=== PATIENT | female | born 1960 | race Caucasian/White ===

== ENCOUNTER 2021-11-10 19:35 | Inpatient (IN) | payer BC ==
[~2021-11-10] VITALS: Ht 172.7 cm; Wt 68.2 kg
[2021-11-10 20:11] LABS: BASOPHILS % (AUTO) 0.7 % (0-1); EOSINOPHILS % (AUTO) 0.8 % (0-6); HEMATOCRIT 40.2 % (35.0-45.0); HEMOGLOBIN 13.4 g/dl (12.0-16.0); LYMPHOCYTES # (AUTO) 0.2 X10'3 (1.1-4.8); LYMPHOCYTES % (AUTO) 5.5 % (21-51); MEAN CORPUSCULAR HEMOGLOBIN 31.1 PG (27.0-31.0); MEAN CORPUSCULAR HGB CONC 33.3 g/dL (33.0-36.5); MEAN CORPUSCULAR VOLUME 93.4 FL (78-98); MEAN PLATELET VOLUME 10.5 FL (7.4-10.4); MONOCYTES # (AUTO) 0.5 X10'3 (0-0.9); MONOCYTES % (AUTO) 12.2 % (2-12); NEUTROPHILS # (AUTO) 3.6 X10'3 (1.8-7.7); NEUTROPHILS % (AUTO) 80.8 % (42-75); PLATELET COUNT 106 X10'3 (140-440); RED BLOOD COUNT 4.31 X10'6 (4.20-5.60); RED CELL DISTRIBUTION WIDTH 14.3 % (11.5-14.5); WHITE BLOOD COUNT 4.5 X10'3 (4.5-11.0)
[2021-11-10 20:36] LABS: ALANINE AMINOTRANSFERASE 88 U/L (12-78); ALBUMIN 3.5 G/DL (3.4-5.0); ALKALINE PHOSPHATASE 170 IU/L (46-116); ANION GAP 9 (8-16); ASPARTATE AMINO TRANSFERASE 92 U/L (10-37); BILIRUBIN,TOTAL 0.2 MG/DL (0.1-1.0); BLOOD UREA NITROGEN 17 MG/DL (7-18); BUN/CREATININE RATIO 18.5 (6.6-38.0); CHLORIDE 104 MMOL/L (99-107); CREATININE 0.92 MG/DL (0.40-0.90); GLUCOSE 137 MG/DL (70-104); POTASSIUM 4.1 MMOL/L (3.5-5.1); SODIUM 137 MMOL/L (135-145); TOTAL CARBON DIOXIDE 24.4 MMOL/L (24-32); eGFR 62 ML/MIN
[2021-11-10 23:18] LABS: D-DIMER 2.09 MG/L FEU (0-0.50)
[2021-11-11] MEDS ORDERED: LORazepam 2 mg/ml vial IV ONE (03:15)
[2021-11-11] MEDS ORDERED: ipratropium/albuterol 3ml nebule NEB ONE (03:30)
[2021-11-11] MEDS ORDERED: mag hydrox/Alum hydrox/simeth 30ml oral suspension PO PRN (05:40)
[2021-11-11] MEDS ORDERED: acetaminophen 325mg tablet PO PRN (05:40)
[2021-11-11] MEDS ORDERED: PERFLUTREN PROTEIN-A MICROSPHR (Optison) 0.22 MG/ML 3ML VIAL IV ONE (05:40)
[2021-11-11] MEDS ORDERED: POTASSIUM BICARB 20meq eff tab 20 MEQ TABLET.EFF PO PRN ×2 (05:40)
[2021-11-11] MEDS ORDERED: magnesium 4gm in 100ml NS 100 ML IV PRN (05:40)
[2021-11-11] MEDS ORDERED: magnesium 2GM in 50ml NS 50 ML IV PRN (05:40)
[2021-11-11] MEDS ORDERED: magnesium hydroxide 30ml (MOM) UD suspension PO PRN (05:40)
[2021-11-11] MEDS ORDERED: potassium CL 10mEq/100ml bag 100 ML IV PRN (05:40)
[2021-11-11] MEDS ORDERED: ondansetron/PF 4mg/2ml inj IV PRN (05:40)
[2021-11-11] MEDS ORDERED: enoxaparin 80mg/0.8ml syringe SUBCUT SCH (06:00)
[2021-11-11 07:28] LABS: MAGNESIUM 1.2 MG/DL (1.5-2.4); POTASSIUM 3.8 MMOL/L (3.5-5.1)
[2021-11-11] MEDS: docusate sod 100mg capsule PO SCH ×2 (07:46→19:46)
[2021-11-11] MEDS: K and/or MAG REPLACEMENT MC SCH ×2 (07:47→20:00)
[2021-11-11] MEDS ORDERED: iohexol 350MG/ML 100ml bottle IV ONE (08:00)
[2021-11-11] MEDS ORDERED: sacubitril/valsartan 24mg-26mg tablet PO SCH (08:00)
[2021-11-11] MEDS ORDERED: carVEDilol 12.5mg tablet PO SCH (08:00)
[2021-11-11] MEDS ORDERED: methylPREDNISolone sod succ 125mg/2ml vial IV ONE (08:20)
--- NOTE | 2021-11-11 08:40 | NUR ---
called pharmacy at this time and spoke to lourdes in pharmacy asked if they can bring pt bp med and verify the rest of meds ,as per her they only have 1 pharmacist and she is busy rgt now.
--- NOTE | 2021-11-11 08:46 | NUR ---
paged dr murray at this time to clarify the need of bld culture prior to admin the abx ?
--- NOTE | 2021-11-11 09:04 | NUR ---
SPOKE TO DR ALBRECHT AND INFORMED ABOUT THE PT LOW BP ,DIAPHORISIS ,TACHYPNEIC AND ORDER FOR BLD CULTURES PRIOR TO ADMIN THE ABX PER MD GIVE 500 ML BOLUS IV FLUID AND REPEAT IF THE BP IS STILL LOW AND ORDER BLD CULTURES.
[2021-11-11] MEDS ORDERED: normal saline 1000ml 1,000 ML IV ONE ×2 (09:05→11:25)
[2021-11-11] MEDS: azithromycin 250mg tablet PO SCH (09:22)
[2021-11-11] MEDS: cefTRIAXone 1g/NS 100ml IVPB 100 ML IV SCH (09:23)
[2021-11-11 09:28] LABS: CLARITY,URINE CLOUDY (Clear); COLOR,URINE YELLOW (Yellow); GLUCOSE, URINE NEGATIVE (Neg); KETONES,URINE 15 mg/dl (Neg); LEUKOCYTE ESTERASE ,URINE NEGATIVE (Neg); NITRITES, URINE POSITIVE (Neg); OCCULT BLOOD,URINE TRACE-INTACT (Neg); PH,URINE 5.5 (4.8-8.0); PROTEIN,URINE NEGATIVE (Neg); UROBILINOGEN,URINE 0.2 E.U/dL (0.2-1.0)
[2021-11-11 09:46] LABS: UA COLLECTION TYPE VOIDED
[2021-11-11 09:48] LABS: BACTERIA,URINE 3+ /HPF (Neg); HYALINE CASTS 0-3 /LPF (NEGATIVE); RBC,URINE 0-2 /HPF (0-2); SQUAMOUS EPITHELIAL CELL,UR FEW /LPF (FEW); WBC,URINE 0-4 /HPF (0-4)
--- NOTE | 2021-11-11 09:48 | NUR ---
dr murray at bedside.
[2021-11-11 10:08] LABS: URINE AMPHETAMINE SCREEN POSITIVE (Neg); URINE BARBITUATE SCREEN NEGATIVE (Neg); URINE BENZODIAZEPINES SCREEN NEGATIVE (Neg); URINE CANNABINOID SCREEN NEGATIVE (Neg); URINE COCAINE SCREEN NEGATIVE (Neg); URINE METHADONE SCREEN NEGATIVE (Neg); URINE OPIATE SCREEN NEGATIVE (Neg); URINE PHENCYCLIDINE SCREEN NEGATIVE (Neg)
[2021-11-11] MEDS ORDERED: SACU1TAB7 PO (10:40)
[2021-11-11] MEDS ORDERED: SPIR25TA5 PO (10:40)
[2021-11-11] MEDS ORDERED: CARV-50 PO (10:40)
--- NOTE | 2021-11-11 10:45 | NUR ---
paged dr murray at this time for low bp again.
--- NOTE | 2021-11-11 11:00 | NUR ---
paged rt for neb tx.
[2021-11-11] MEDS: ipratropium/albuterol 3ml nebule NEB SCH ×4 (11:19→23:06)
--- NOTE | 2021-11-11 11:23 | NUR ---
spoke to dr murray earlier regarding low bp 88/44 mmHg ,tele order for 1 l of n.s bolus .
--- NOTE | 2021-11-11 12:27 | NUR ---
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
[2021-11-11] MEDS: methylPREDNISolone sod succ/PF 40mg inj. IV SCH ×2 (14:04→19:46)
--- NOTE | 2021-11-11 16:23 | NUR ---
Patient in room PCU 3012. I have received report from Rubina TALBOT and had the opportunity to ask questions and assume patient care.
[2021-11-11 16:30] VITALS: BP 91/50
[2021-11-11] MEDS: magnesium Cl slow-release 64mg tablet PO PRN (17:27)
--- NOTE | 2021-11-11 17:56 | NUR ---
patient resting at time of report.
[2021-11-11 18:00] VITALS: BP 93/37
[2021-11-11] MEDS: normal saline 1000ml 1,000 ML IV SCH (18:09)
[2021-11-11] MEDS ORDERED: pneumococcal 23-VAL P-sac vacc 25 mcg/0.5ml vial IMVAC ONE (18:15)
--- NOTE | 2021-11-11 18:39 | NUR ---
patient sat up eating at time of report. no c/o pain. Report given to trip TALBOT
[2021-11-11 22:00] VITALS: BP 95/49
[2021-11-12 02:00] VITALS: BP 93/42
[2021-11-12] MEDS: ipratropium/albuterol 3ml nebule NEB SCH ×6 (03:23→22:43)
[2021-11-12 06:00] VITALS: BP 97/45
--- NOTE | 2021-11-12 06:28 | NUR ---
Problems reprioritized. Patient report given, questions answered & plan of care reviewed with DAHIANA Hernandez.
[2021-11-12 06:32] LABS: BASOPHILS % (AUTO) 0.3 % (0-1); EOSINOPHILS % (AUTO) 0 % (0-6); HEMATOCRIT 36.6 % (35.0-45.0); HEMOGLOBIN 12.3 g/dl (12.0-16.0); LYMPHOCYTES # (AUTO) 0.5 X10'3 (1.1-4.8); LYMPHOCYTES % (AUTO) 4.8 % (21-51); MEAN CORPUSCULAR HEMOGLOBIN 31.7 PG (27.0-31.0); MEAN CORPUSCULAR HGB CONC 33.4 g/dL (33.0-36.5); MEAN CORPUSCULAR VOLUME 94.9 FL (78-98); MEAN PLATELET VOLUME 10.7 FL (7.4-10.4); MONOCYTES # (AUTO) 0.4 X10'3 (0-0.9); NEUTROPHILS % (AUTO) 90.9 % (42-75); PLATELET COUNT 110 X10'3 (140-440); RED BLOOD COUNT 3.86 X10'6 (4.20-5.60); RED CELL DISTRIBUTION WIDTH 14.6 % (11.5-14.5); WHITE BLOOD COUNT 9.9 X10'3 (4.5-11.0)
[2021-11-12 06:42] LABS: ALANINE AMINOTRANSFERASE 52 U/L (12-78); ALBUMIN 2.7 G/DL (3.4-5.0); ALBUMIN/GLOBULIN RATIO 0.8 (1.1-1.5); ALKALINE PHOSPHATASE 142 IU/L (46-116); ANION GAP 9 (8-16); ASPARTATE AMINO TRANSFERASE 36 U/L (10-37); BILIRUBIN,TOTAL 0.1 MG/DL (0.1-1.0); BLOOD UREA NITROGEN 19 MG/DL (7-18); BUN/CREATININE RATIO 22.6 (6.6-38.0); CALCIUM 9.1 MG/DL (8.5-10.1); CHLORIDE 108 MMOL/L (99-107); CREATININE 0.84 MG/DL (0.40-0.90); GLUCOSE 135 MG/DL (70-104); MAGNESIUM 1.3 MG/DL (1.5-2.4); PHOSPHORUS 2.4 MG/DL (2.3-4.5); POTASSIUM 4.1 MMOL/L (3.5-5.1); SODIUM 142 MMOL/L (135-145); TOTAL CARBON DIOXIDE 24.9 MMOL/L (24-32); TOTAL PROTEIN 5.9 G/DL (6.4-8.2); eGFR 68 ML/MIN
[2021-11-12] MEDS: normal saline 1000ml 1,000 ML IV SCH ×2 (07:25→11:34)
[2021-11-12 07:57] LABS: LARGE PLATELETS FEW; PLATELET ESTIMATE DECREASED
[2021-11-12] MEDS ORDERED: enoxaparin 80mg/0.8ml syringe SUBCUT SCH (08:00)
[2021-11-12] MEDS: docusate sod 100mg capsule PO SCH ×2 (08:00→20:00)
[2021-11-12] MEDS: K and/or MAG REPLACEMENT MC SCH ×2 (08:00→20:00)
[2021-11-12] MEDS: cefTRIAXone 1g/NS 100ml IVPB 100 ML IV SCH (09:34)
[2021-11-12] MEDS: azithromycin 250mg tablet PO SCH (09:34)
[2021-11-12] MEDS: magnesium Cl slow-release 64mg tablet PO PRN ×2 (09:34→20:15)
[2021-11-12] MEDS ORDERED: LORazepam 1 MG tablet PO PRN (10:10)
[2021-11-12] MEDS ORDERED: haloperidol 5mg tablet PO PRN (10:10)
[2021-11-12] MEDS ORDERED: LORazepam 2 mg/ml vial IV PRN (10:10)
[2021-11-12] MEDS ORDERED: haloperidol lactate 5mg/ml inj IM PRN (10:10)
[2021-11-12 11:00] VITALS: BP 94/60
[2021-11-12] MEDS: multivitamins, therapeutics tablet PO SCH (11:33)
[2021-11-12] MEDS: folic acid 1mg tablet PO SCH (11:33)
[2021-11-12] MEDS: thiamine 100mg tablet PO SCH (11:33)
[2021-11-12] MEDS: enoxaparin 40mg/0.4ml syringe SUBCUT SCH ×2 (11:34→20:15)
--- NOTE | 2021-11-12 12:05 | NUR ---
Solumedrol which was scheduled for 0800 was not administered. It is too late to give now. Will wait for 1400 dose.
[2021-11-12] MEDS: methylPREDNISolone sod succ/PF 40mg inj. IV SCH ×3 (13:57→20:14)
[2021-11-12 15:00] VITALS: BP 103/81
--- NOTE | 2021-11-12 16:35 | NUR ---
Hourly roundings have been completed. Call light and personal belongings within reach. Will continue to monitor.
[2021-11-12 20:00] VITALS: BP 133/70
[2021-11-13 02:00] VITALS: BP 122/72
[2021-11-13] MEDS: methylPREDNISolone sod succ/PF 40mg inj. IV SCH ×3 (02:07→19:55)
[2021-11-13] MEDS: ipratropium/albuterol 3ml nebule NEB SCH ×6 (03:22→23:14)
[2021-11-13 06:00] VITALS: BP 135/69
[2021-11-13 06:35] LABS: BASOPHILS % (AUTO) 0.1 % (0-1); EOSINOPHILS % (AUTO) 0 % (0-6); HEMATOCRIT 36.9 % (35.0-45.0); HEMOGLOBIN 12.3 g/dl (12.0-16.0); LYMPHOCYTES # (AUTO) 0.5 X10'3 (1.1-4.8); LYMPHOCYTES % (AUTO) 5.5 % (21-51); MEAN CORPUSCULAR HGB CONC 33.2 g/dL (33.0-36.5); MEAN CORPUSCULAR VOLUME 93.3 FL (78-98); MEAN PLATELET VOLUME 10.9 FL (7.4-10.4); MONOCYTES # (AUTO) 0.2 X10'3 (0-0.9); MONOCYTES % (AUTO) 2.3 % (2-12); NEUTROPHILS # (AUTO) 8.2 X10'3 (1.8-7.7); NEUTROPHILS % (AUTO) 92.1 % (42-75); PLATELET COUNT 125 X10'3 (140-440); RED BLOOD COUNT 3.96 X10'6 (4.20-5.60); RED CELL DISTRIBUTION WIDTH 14.7 % (11.5-14.5); WHITE BLOOD COUNT 8.9 X10'3 (4.5-11.0)
[2021-11-13 06:50] LABS: ALANINE AMINOTRANSFERASE 69 U/L (12-78); ALBUMIN 2.9 G/DL (3.4-5.0); ALBUMIN/GLOBULIN RATIO 0.9 (1.1-1.5); ALKALINE PHOSPHATASE 128 IU/L (46-116); ANION GAP 9 (8-16); ASPARTATE AMINO TRANSFERASE 69 U/L (10-37); BILIRUBIN,TOTAL 0.2 MG/DL (0.1-1.0); BLOOD UREA NITROGEN 15 MG/DL (7-18); BUN/CREATININE RATIO 19.7 (6.6-38.0); CALCIUM 9.4 MG/DL (8.5-10.1); CHLORIDE 109 MMOL/L (99-107); CREATININE 0.76 MG/DL (0.40-0.90); GLUCOSE 167 MG/DL (70-104); MAGNESIUM 1.4 MG/DL (1.5-2.4); PHOSPHORUS 2.3 MG/DL (2.3-4.5); POTASSIUM 4.3 MMOL/L (3.5-5.1); SODIUM 143 MMOL/L (135-145); TOTAL CARBON DIOXIDE 24.6 MMOL/L (24-32); TOTAL PROTEIN 6.1 G/DL (6.4-8.2); eGFR 77 ML/MIN
[2021-11-13] MEDS: thiamine 100mg tablet PO SCH (07:54)
[2021-11-13] MEDS: magnesium Cl slow-release 64mg tablet PO PRN ×2 (07:54→19:56)
[2021-11-13] MEDS: multivitamins, therapeutics tablet PO SCH (07:54)
[2021-11-13] MEDS: folic acid 1mg tablet PO SCH (07:54)
[2021-11-13] MEDS: azithromycin 250mg tablet PO SCH (07:55)
[2021-11-13] MEDS: carVEDilol 12.5mg tablet PO SCH ×2 (07:55→19:56)
[2021-11-13] MEDS: sacubitril/valsartan 49mg-51mg tablet PO SCH ×2 (07:56→19:56)
[2021-11-13] MEDS: spironolactone 25 MG tablet PO SCH (07:56)
[2021-11-13] MEDS: cefTRIAXone 1g/NS 100ml IVPB 100 ML IV SCH (07:56)
[2021-11-13] MEDS: K and/or MAG REPLACEMENT MC SCH ×2 (07:56→18:58)
[2021-11-13] MEDS: docusate sod 100mg capsule PO SCH ×2 (07:57→19:55)
[2021-11-13 11:00] VITALS: BP 130/73
--- NOTE | 2021-11-13 14:51 | NUR ---
pt refused 1400 blood sugar check. Education provided, pt verbalized understanding
[2021-11-13 15:00] VITALS: BP 133/65
[2021-11-13 18:00] VITALS: BP 109/45
[2021-11-13] MEDS: enoxaparin 40mg/0.4ml syringe SUBCUT SCH (19:56)
--- NOTE | 2021-11-13 21:39 | NUR ---
Patient refused blood glucose check at 2000 Addendum: 11/13/21 at 2140 by Nelli Don RN Amended: Links added.
[2021-11-13 22:00] VITALS: BP 121/61
[2021-11-13] MEDS: normal saline 1000ml 1,000 ML IV SCH (22:08)
[2021-11-14 02:00] VITALS: BP 120/56
[2021-11-14] MEDS: ipratropium/albuterol 3ml nebule NEB SCH ×3 (02:48→11:22)
[2021-11-14 06:00] VITALS: BP 135/64
[2021-11-14 07:01] LABS: BASOPHILS % (AUTO) 0.1 % (0-1); EOSINOPHILS % (AUTO) 0 % (0-6); HEMATOCRIT 38.6 % (35.0-45.0); HEMOGLOBIN 13.1 g/dl (12.0-16.0); LYMPHOCYTES # (AUTO) 0.8 X10'3 (1.1-4.8); LYMPHOCYTES % (AUTO) 8.5 % (21-51); MEAN CORPUSCULAR HEMOGLOBIN 31.5 PG (27.0-31.0); MEAN CORPUSCULAR VOLUME 92.8 FL (78-98); MEAN PLATELET VOLUME 10.6 FL (7.4-10.4); MONOCYTES # (AUTO) 0.4 X10'3 (0-0.9); MONOCYTES % (AUTO) 4.9 % (2-12); NEUTROPHILS # (AUTO) 7.9 X10'3 (1.8-7.7); NEUTROPHILS % (AUTO) 86.5 % (42-75); PLATELET COUNT 130 X10'3 (140-440); RED BLOOD COUNT 4.16 X10'6 (4.20-5.60); RED CELL DISTRIBUTION WIDTH 14.6 % (11.5-14.5); WHITE BLOOD COUNT 9.1 X10'3 (4.5-11.0)
[2021-11-14 07:20] LABS: ALANINE AMINOTRANSFERASE 204 U/L (12-78); ALBUMIN 2.7 G/DL (3.4-5.0); ALBUMIN/GLOBULIN RATIO 0.9 (1.1-1.5); ALKALINE PHOSPHATASE 120 IU/L (46-116); ANION GAP 3 (8-16); ASPARTATE AMINO TRANSFERASE 187 U/L (10-37); BILIRUBIN,TOTAL 0.2 MG/DL (0.1-1.0); BLOOD UREA NITROGEN 17 MG/DL (7-18); BUN/CREATININE RATIO 20.5 (6.6-38.0); CALCIUM 9.2 MG/DL (8.5-10.1); CHLORIDE 108 MMOL/L (99-107); CREATININE 0.83 MG/DL (0.40-0.90); GLUCOSE 141 MG/DL (70-104); MAGNESIUM 1.4 MG/DL (1.5-2.4); PHOSPHORUS 2.6 MG/DL (2.3-4.5); POTASSIUM 4.1 MMOL/L (3.5-5.1); SODIUM 138 MMOL/L (135-145); TOTAL CARBON DIOXIDE 27.2 MMOL/L (24-32); TOTAL PROTEIN 5.8 G/DL (6.4-8.2); eGFR 69 ML/MIN
[2021-11-14] MEDS: docusate sod 100mg capsule PO SCH (08:00)
[2021-11-14] MEDS: sacubitril/valsartan 49mg-51mg tablet PO SCH (08:00)
[2021-11-14] MEDS: K and/or MAG REPLACEMENT MC SCH (08:00)
[2021-11-14] MEDS: folic acid 1mg tablet PO SCH (08:55)
[2021-11-14] MEDS: spironolactone 25 MG tablet PO SCH (08:55)
[2021-11-14] MEDS: multivitamins, therapeutics tablet PO SCH (08:55)
[2021-11-14] MEDS: thiamine 100mg tablet PO SCH (08:55)
[2021-11-14] MEDS: carVEDilol 12.5mg tablet PO SCH (08:56)
[2021-11-14] MEDS: methylPREDNISolone sod succ/PF 40mg inj. IV SCH (08:56)
[2021-11-14] MEDS: cefTRIAXone 1g/NS 100ml IVPB 100 ML IV SCH (08:56)
[2021-11-14] MEDS: azithromycin 250mg tablet PO SCH (08:56)
--- NOTE | 2021-11-14 10:01 | NUR ---
O2 Sat at rest on room air:__87_% If below 89%: Recovery O2 Sat at rest on _1__LPM:__90_%:___% via____n/c (mask/nasal cannula, etc..) No further documentation is necessary.
[2021-11-14] MEDS ORDERED: ALBU8.5H17 INH (10:59)
[2021-11-14] MEDS ORDERED: FOLI1TAB27 PO (10:59)
[2021-11-14] MEDS ORDERED: MULT-25 PO (10:59)
[2021-11-14] MEDS ORDERED: CEFD300C3 PO (10:59)
[2021-11-14] MEDS ORDERED: PRED10TA23 PO (10:59)
[2021-11-14] MEDS ORDERED: THIA50TA10 PO (10:59)
[2021-11-14] MEDS ORDERED: BUDE10.22 INH (10:59)
[2021-11-14 11:00] VITALS: BP 146/72
--- NOTE | 2021-11-14 12:16 | NUR ---
Discharge instructions discussed with patient. All questions answered. Pt states she understands all instructions and will make necessary follow up appointments with her doctors. Provided smoking cessation hand outs and also home oxygen use hand outs. Discussed all new medications with patient. Pt will leave with home O2 tank via wheelchair with spouse.
== END 2021-11-14 12:41 | disposition home or self-care (01) | DRG 871 ==
LOC: ER 19:38 → ED HOLD 11-11 05:39 → PCU 3S 11-11 16:01
PROVIDERS: ADMIT Internal Medicine; ATTEND Family Medicine
PROC: B32T1ZZ Computerized Tomography (CT Scan) of Left Pulmonary Artery using Low Osmolar Contrast (ICD-10-PCS; principal; 2021-11-11)
PROC: B3201ZZ Computerized Tomography (CT Scan) of Thoracic Aorta using Low Osmolar Contrast (ICD-10-PCS; 2021-11-11)
PROC: B32S1ZZ Computerized Tomography (CT Scan) of Right Pulmonary Artery using Low Osmolar Contrast (ICD-10-PCS; 2021-11-11)
DX: A41.9 Sepsis, unspecified organism (principal); J18.9 Pneumonia, unspecified organism; N39.0 Urinary tract infection, site not specified; J44.1 Chronic obstructive pulmonary disease with (acute) exacerbation; I42.9 Cardiomyopathy, unspecified; J44.0 Chronic obstructive pulmonary disease with (acute) lower respiratory infection; I50.9 Heart failure, unspecified; F10.20 Alcohol dependence, uncomplicated; Z20.822 Contact with and (suspected) exposure to COVID-19; J20.9 Acute bronchitis, unspecified; F15.10 Other stimulant abuse, uncomplicated; F17.200 Nicotine dependence, unspecified, uncomplicated; M41.9 Scoliosis, unspecified; R09.02 Hypoxemia; Z95.810 Presence of automatic (implantable) cardiac defibrillator; Z71.41 Alcohol abuse counseling and surveillance of alcoholic; Z71.51 Drug abuse counseling and surveillance of drug abuser; Z71.6 Tobacco abuse counseling
CPT/HCPCS: 36415; 71045; 71046; 71275; 80053; 80305; 81001; 82948; 83605; 83735; 83880; 84100; 84132; 84145; 84484; 85008; 85025; 85379; 87040; 87077; 87081; 87088; 87186; 87635; 93005; 93306; 94640; 94664; 94668; 94760; 99285; A4615; C9803; G0378; J0696; J1650; J2060; J2920; J2930; J7030; Q9967

== ENCOUNTER 2021-11-19 06:18 | Inpatient (IN) | payer BC ==
[~2021-11-19] VITALS: Ht 172.7 cm; Wt 65.4 kg
[~2021-11-19 06:18] MED LIST: ALBU8.5H17 INH; BUDE10.22 INH; CARV-50 PO; CEFD300C3 PO; FOLI1TAB27 PO; MULT-25 PO; PRED10TA23 PO; SACU1TAB7 PO; SPIR25TA5 PO; THIA50TA10 PO
[2021-11-19] MEDS ORDERED: ondansetron/PF 4mg/2ml inj IV ONE (07:00)
[2021-11-19] MEDS ORDERED: albuterol 2.5 MG/3 ML nebule NEB ONE (07:00)
[2021-11-19 07:37] LABS: BASOPHILS % (AUTO) 0.1 % (0-1); EOSINOPHILS # (AUTO) 0.2 X10'3 (0-0.9); EOSINOPHILS % (AUTO) 0.7 % (0-6); HEMATOCRIT 43.7 % (35.0-45.0); HEMOGLOBIN 14.5 g/dl (12.0-16.0); LYMPHOCYTES % (AUTO) 7.1 % (21-51); MEAN CORPUSCULAR HEMOGLOBIN 30.9 PG (27.0-31.0); MEAN CORPUSCULAR HGB CONC 33.3 g/dL (33.0-36.5); MEAN CORPUSCULAR VOLUME 92.9 FL (78-98); MEAN PLATELET VOLUME 9.7 FL (7.4-10.4); MONOCYTES # (AUTO) 3.1 X10'3 (0-0.9); MONOCYTES % (AUTO) 10.7 % (2-12); NEUTROPHILS # (AUTO) 23.3 X10'3 (1.8-7.7); NEUTROPHILS % (AUTO) 81.4 % (42-75); PLATELET COUNT 232 X10'3 (140-440); RED CELL DISTRIBUTION WIDTH 14.3 % (11.5-14.5)
[2021-11-19 07:47] LABS: WHITE BLOOD COUNT 28.7 X10'3 (4.5-11.0)
[2021-11-19 08:00] LABS: ALANINE AMINOTRANSFERASE 132 U/L (12-78); ALBUMIN/GLOBULIN RATIO 0.8 (1.1-1.5); ALKALINE PHOSPHATASE 130 IU/L (46-116); ANION GAP 11 (8-16); ASPARTATE AMINO TRANSFERASE 72 U/L (10-37); BILIRUBIN,TOTAL 0.6 MG/DL (0.1-1.0); BLOOD UREA NITROGEN 22 MG/DL (7-18); BUN/CREATININE RATIO 19.8 (6.6-38.0); CALCIUM 9.6 MG/DL (8.5-10.1); CHLORIDE 98 MMOL/L (99-107); CREATININE 1.11 MG/DL (0.40-0.90); GLUCOSE 174 MG/DL (70-104); POTASSIUM 4.1 MMOL/L (3.5-5.1); SODIUM 139 MMOL/L (135-145); TOTAL CARBON DIOXIDE 30.2 MMOL/L (24-32); TOTAL PROTEIN 6.6 G/DL (6.4-8.2); eGFR 50 ML/MIN
[2021-11-19 08:13] LABS: TOTAL CELLS COUNTED 100
[2021-11-19 08:14] LABS: PLATELET ESTIMATE NORMAL
[2021-11-19] MEDS ORDERED: normal saline 1000ml 1,000 ML IV ONE (09:50)
[2021-11-19] MEDS ORDERED: ringers solution, lacted 1,000 ML IV ONE (10:50)
[2021-11-19] MEDS ORDERED: CefTRIAXone 2gm/NS 100ml IVPB 100 ML IV ONE (10:50)
[2021-11-19] MEDS ORDERED: ondansetron/PF 4mg/2ml inj IV PRN (13:50)
[2021-11-19] MEDS ORDERED: potassium CL 10mEq/100ml bag 100 ML IV PRN (13:50)
[2021-11-19] MEDS ORDERED: POTASSIUM BICARB 20meq eff tab 20 MEQ TABLET.EFF PO PRN ×2 (13:50)
[2021-11-19] MEDS ORDERED: magnesium 2GM in 50ml NS 50 ML IV PRN (13:50)
[2021-11-19] MEDS ORDERED: magnesium Cl slow-release 64mg tablet PO PRN (13:50)
[2021-11-19] MEDS ORDERED: acetaminophen 325mg tablet PO PRN (13:50)
[2021-11-19] MEDS ORDERED: magnesium 4gm in 100ml NS 100 ML IV PRN (13:50)
[2021-11-19] MEDS ORDERED: cefTRIAXone 1g/NS 100ml IVPB 100 ML IV SCH (14:05)
[2021-11-19] MEDS ORDERED: azithromycin/NS 500mg/250ml 250 ML IV ONE (14:05)
[2021-11-19] MEDS: ipratropium/albuterol 3ml nebule NEB SCH ×3 (14:50→23:20)
[2021-11-19] MEDS: normal saline 1000ml 1,000 ML IV SCH (15:11)
[2021-11-19 15:30] LABS: MAGNESIUM 1.4 MG/DL (1.5-2.4); POTASSIUM 3.9 MMOL/L (3.5-5.1)
[2021-11-19] MEDS: docusate sod 100mg capsule PO SCH (18:58)
[2021-11-19] MEDS: K and/or MAG REPLACEMENT MC SCH (18:58)
[2021-11-19] MEDS: methylPREDNISolone sod succ 125mg/2ml vial IV SCH (19:07)
[2021-11-19 21:15] VITALS: BP 110/59
[2021-11-20] MEDS: normal saline 1000ml 1,000 ML IV SCH ×3 (00:06→21:56)
[2021-11-20 02:00] VITALS: BP 110/64
[2021-11-20] MEDS: ipratropium/albuterol 3ml nebule NEB SCH ×6 (03:05→23:14)
[2021-11-20] MEDS ORDERED: ALB0.5UD IH (05:36)
[2021-11-20 06:00] VITALS: BP 105/61
--- NOTE | 2021-11-20 06:00 | NUR ---
RECEIVED REPORT FROM HELEN
[2021-11-20 06:50] LABS: BASOPHILS % (AUTO) 0.1 % (0-1); EOSINOPHILS % (AUTO) 0.1 % (0-6); HEMOGLOBIN 11.5 g/dl (12.0-16.0); LYMPHOCYTES # (AUTO) 0.5 X10'3 (1.1-4.8); LYMPHOCYTES % (AUTO) 3.7 % (21-51); MEAN CORPUSCULAR HEMOGLOBIN 31.3 PG (27.0-31.0); MEAN CORPUSCULAR HGB CONC 32.8 g/dL (33.0-36.5); MEAN CORPUSCULAR VOLUME 95.3 FL (78-98); MONOCYTES # (AUTO) 0.5 X10'3 (0-0.9); MONOCYTES % (AUTO) 4.1 % (2-12); NEUTROPHILS # (AUTO) 12.5 X10'3 (1.8-7.7); PLATELET COUNT 175 X10'3 (140-440); RED BLOOD COUNT 3.68 X10'6 (4.20-5.60); RED CELL DISTRIBUTION WIDTH 14.4 % (11.5-14.5); WHITE BLOOD COUNT 13.6 X10'3 (4.5-11.0)
[2021-11-20 07:10] LABS: ALBUMIN 2.1 G/DL (3.4-5.0); ANION GAP 9 (8-16); BLOOD UREA NITROGEN 18 MG/DL (7-18); BUN/CREATININE RATIO 24.7 (6.6-38.0); CALCIUM 8.6 MG/DL (8.5-10.1); CHLORIDE 105 MMOL/L (99-107); CREATININE 0.73 MG/DL (0.40-0.90); GLUCOSE 152 MG/DL (70-104); MAGNESIUM 1.5 MG/DL (1.5-2.4); POTASSIUM 4.7 MMOL/L (3.5-5.1); SODIUM 141 MMOL/L (135-145); TOTAL CARBON DIOXIDE 27.5 MMOL/L (24-32); eGFR 81 ML/MIN
[2021-11-20] MEDS: K and/or MAG REPLACEMENT MC SCH ×2 (08:00→20:00)
[2021-11-20] MEDS: docusate sod 100mg capsule PO SCH ×2 (08:00→20:00)
[2021-11-20] MEDS: folic acid 1mg tablet PO SCH (08:55)
[2021-11-20] MEDS: thiamine 100mg tablet PO SCH (08:56)
[2021-11-20] MEDS: spironolactone 25 MG tablet PO SCH (08:56)
[2021-11-20] MEDS: cefTRIAXone 1g/NS 100ml IVPB 100 ML IV SCH (09:11)
[2021-11-20] MEDS: sacubitril/valsartan 49mg-51mg tablet PO SCH ×2 (10:46→21:57)
[2021-11-20] MEDS: carVEDilol 12.5mg tablet PO SCH ×2 (10:48→21:57)
[2021-11-20] MEDS: azithromycin 250mg tablet PO SCH (10:49)
[2021-11-20] MEDS: methylPREDNISolone sod succ 125mg/2ml vial IV SCH ×2 (10:50→21:56)
[2021-11-20 11:00] VITALS: BP 103/54
[2021-11-20] MEDS ORDERED: albuterol 2.5 MG/3 ML nebule NEB SCH (14:00)
[2021-11-20 15:00] VITALS: BP 97/41
[2021-11-20] MEDS ORDERED: albuterol 2.5 MG/3 ML nebule NEB PRN (15:55)
[2021-11-20 18:00] VITALS: BP 116/50
--- NOTE | 2021-11-20 18:35 | NUR ---
REPORT GIVEN TO HELEN
[2021-11-20] MEDS: budesonide 0.5mg/2ml UD nebule IH SCH (18:50)
[2021-11-20] MEDS ORDERED: enoxaparin 40mg/0.4ml syringe SUBCUT SCH (20:00)
[2021-11-20] MEDS ORDERED: non-formulary drug (Budesonide/Formoterol Fumarate (Symbicort 80-4.5 Mcg Inhaler) 2 PUFFS) INH SCH (20:00)
[2021-11-20] MEDS ORDERED: cefpodoxime proxetil 100mg tablet PO SCH (20:00)
--- NOTE | 2021-11-20 20:45 | NUR ---
Paged Dr Sands: "PAGER ID: [phone] MESSAGE: For patient in room 3012A JORGE LUIS Barnes. Would like something for acid reflux.Takes Omeprazole at home but has been noncompliant with it. Call back [phone]. DAHIANA Israel. Thanks"
[2021-11-20 20:56] LABS: NEUTROPHILS % (MANUAL) 67 % (42-75)
[2021-11-20 20:57] LABS: BANDS% (MANUAL) 12 % (0-10); LYMPHOCYTES % (MANUAL) 8 % (21-51)
[2021-11-20 20:58] LABS: BASOPHILS % (MANUAL) 0 % (0-1); EOSINOPHILS % (MANUAL) 2 % (0-6); MONOCYTES % (MANUAL) 9 % (2-12)
[2021-11-20 20:59] LABS: NUCLEATED RED BLOOD CELLS 0 /100WBC (0-0); REACTIVE LYMPHOCYTES % 1 % (0-0)
[2021-11-20 21:00] LABS: SMUDGE CELLS 1+
[2021-11-20 21:01] LABS: METAMYLEOCYTES% (MANUAL) 1 % (0-0)
[2021-11-20 22:00] VITALS: BP 126/70
[2021-11-21 02:00] VITALS: BP 109/54
[2021-11-21] MEDS: ipratropium/albuterol 3ml nebule NEB SCH ×4 (02:59→14:52)
[2021-11-21 06:00] VITALS: BP 107/53
--- NOTE | 2021-11-21 06:10 | NUR ---
Patient in room PCU 3012. I have received report from DAHIANA Israel and had the opportunity to ask questions and assume patient care.
--- NOTE | 2021-11-21 06:26 | NUR ---
Change of shift report given to RN Taylor. Issues reprioritized. patient stable. No Acute complaints.
[2021-11-21] MEDS: normal saline 1000ml 1,000 ML IV SCH ×2 (07:06→10:35)
[2021-11-21] MEDS ORDERED: mag hydrox/Alum hydrox/simeth 30ml oral suspension PO PRN (07:20)
[2021-11-21] MEDS: budesonide 0.5mg/2ml UD nebule IH SCH (07:47)
[2021-11-21] MEDS ORDERED: multivitamins, therapeutics tablet PO SCH (08:00)
[2021-11-21 08:11] LABS: BASOPHILS # (AUTO) 0.2 X10'3 (0-0.2); BASOPHILS % (AUTO) 1.1 % (0-1); EOSINOPHILS % (AUTO) 0 % (0-6); HEMATOCRIT 33.4 % (35.0-45.0); HEMOGLOBIN 11.1 g/dl (12.0-16.0); LYMPHOCYTES # (AUTO) 0.6 X10'3 (1.1-4.8); LYMPHOCYTES % (AUTO) 3.9 % (21-51); MEAN CORPUSCULAR HEMOGLOBIN 31.1 PG (27.0-31.0); MEAN CORPUSCULAR HGB CONC 33.2 g/dL (33.0-36.5); MEAN CORPUSCULAR VOLUME 93.5 FL (78-98); MEAN PLATELET VOLUME 10.3 FL (7.4-10.4); MONOCYTES # (AUTO) 0.6 X10'3 (0-0.9); MONOCYTES % (AUTO) 3.8 % (2-12); NEUTROPHILS # (AUTO) 13.4 X10'3 (1.8-7.7); NEUTROPHILS % (AUTO) 91.2 % (42-75); PLATELET COUNT 197 X10'3 (140-440); RED BLOOD COUNT 3.57 X10'6 (4.20-5.60); RED CELL DISTRIBUTION WIDTH 14.6 % (11.5-14.5); WHITE BLOOD COUNT 14.7 X10'3 (4.5-11.0)
[2021-11-21 08:38] LABS: ALBUMIN 2.2 G/DL (3.4-5.0); ANION GAP 10 (8-16); BLOOD UREA NITROGEN 17 MG/DL (7-18); BUN/CREATININE RATIO 23.6 (6.6-38.0); CALCIUM 8.6 MG/DL (8.5-10.1); CHLORIDE 108 MMOL/L (99-107); CREATININE 0.72 MG/DL (0.40-0.90); GLUCOSE 168 MG/DL (70-104); MAGNESIUM 1.4 MG/DL (1.5-2.4); POTASSIUM 4.4 MMOL/L (3.5-5.1); SODIUM 143 MMOL/L (135-145); TOTAL CARBON DIOXIDE 25.5 MMOL/L (24-32); eGFR 82 ML/MIN
[2021-11-21] MEDS ORDERED: PRED20TA PO (08:55)
[2021-11-21] MEDS ORDERED: AZI25OT PO (08:55)
[2021-11-21 10:00] VITALS: BP 119/50
[2021-11-21] MEDS: K and/or MAG REPLACEMENT MC SCH (10:22)
[2021-11-21] MEDS: folic acid 1mg tablet PO SCH (10:28)
[2021-11-21] MEDS: azithromycin 250mg tablet PO SCH (10:28)
[2021-11-21] MEDS: cefTRIAXone 1g/NS 100ml IVPB 100 ML IV SCH (10:28)
[2021-11-21] MEDS: methylPREDNISolone sod succ 125mg/2ml vial IV SCH (10:28)
[2021-11-21 10:29] VITALS: BP_SYST 107
[2021-11-21] MEDS: carVEDilol 12.5mg tablet PO SCH (10:29)
[2021-11-21] MEDS: spironolactone 25 MG tablet PO SCH (10:29)
[2021-11-21] MEDS: thiamine 100mg tablet PO SCH (10:29)
[2021-11-21] MEDS: sacubitril/valsartan 49mg-51mg tablet PO SCH (10:29)
[2021-11-21] MEDS: docusate sod 100mg capsule PO SCH (10:30)
--- NOTE | 2021-11-21 14:55 | NUR ---
DC inst provided to pt. IV DC'd, tip intact. All belongings sent w/pt. WC to vehicle.
== END 2021-11-21 15:08 | disposition home or self-care (01) | DRG 871 ==
LOC: ER 06:19 → ED HOLD 14:00 → PCU 3S 20:58
PROVIDERS: ADMIT Internal Medicine; ATTEND Internal Medicine
DX: A41.9 Sepsis, unspecified organism (principal); J18.9 Pneumonia, unspecified organism; J44.1 Chronic obstructive pulmonary disease with (acute) exacerbation; I50.32 Chronic diastolic (congestive) heart failure; J96.10 Chronic respiratory failure, unspecified whether with hypoxia or hypercapnia; J44.0 Chronic obstructive pulmonary disease with (acute) lower respiratory infection; F17.210 Nicotine dependence, cigarettes, uncomplicated; G89.29 Other chronic pain; M54.9 Dorsalgia, unspecified; I95.9 Hypotension, unspecified; R19.7 Diarrhea, unspecified; K80.20 Calculus of gallbladder without cholecystitis without obstruction; N20.0 Calculus of kidney; Z79.51 Long term (current) use of inhaled steroids; Z79.899 Other long term (current) drug therapy
CPT/HCPCS: 36415; 71045; 74176; 80048; 80053; 83605; 83735; 84132; 84145; 85007; 85025; 87040; 87081; 94640; 94667; 94668; 94760; 96365; 96375; 99285; A4615; A4620; G0378; J0456; J0696; J1650; J2405; J2930; J7030; J7120

== ENCOUNTER 2023-09-10 07:19 | Outpatient (CLI) | payer BC, MEDICARE ==
[~2023-09-10] VITALS: Ht 165.1 cm; Wt 62.1 kg
[~2023-09-10 07:19] MED LIST changes: +ALB0.5UD IH; -ALBU8.5H17 INH; +AZI25OT PO; -CEFD300C3 PO; -PRED10TA23 PO; +PRED20TA PO
[2023-09-10] MEDS: albuterol 2.5 MG/3 ML nebule NEB PRN (07:59)
[2023-09-10 08:01] VITALS: PULSE 81; RESP 14; O2SAT 96
== END 2023-09-10 23:59 | disposition home or self-care (01) ==
LOC: RT 07:19
PROVIDERS: ATTEND Physician Assistant
DX: J43.9 Emphysema, unspecified (principal)
CPT/HCPCS: 94060; 94760